=== PATIENT | male | born 1960 | race Caucasian/White ===

== ENCOUNTER 2024-07-28 14:34 | Emergency (ER) | payer MEDICARE ==
[~2024-07-28] VITALS: Ht 170.2 cm; Wt 78.8 kg
[~2024-07-28 14:34] MED LIST: BACLOFEN10 MG PO; CYCLOBENZAPRINE10 MG PO; LIPITOR40 MG PO; MELOXICAM15 MG PO; NEURONTIN300 MG PO; PANTOPRAZOLE SO40 MG PO; VENTOLIN HFA18 GM INH; VERAPAMIL ER180 MG PO
[2024-07-28] MEDS ORDERED: TOPIRAMATE100 MG PO (14:55)
[2024-07-28] MEDS ORDERED: TAMSULOSIN HCL0.4 MG PO (14:55)
[2024-07-28] MEDS ORDERED: LIDOCAINE HCL 4% 1 EACH PATCH TD ONE (15:00)
[2024-07-28] MEDS ORDERED: ondansetron HCL 4 MG/2 ML VIAL IV ONE (15:00)
[2024-07-28] MEDS ORDERED: HYDROmorphone HCL 1 MG/ML SYR IV ONE (15:00)
[2024-07-28] MEDS ORDERED: diazePAM 10 MG/2 ML SYR IV ONE (15:00)
[2024-07-28] MEDS ORDERED: PERCOCET 5-3251 EACH PO (16:33)
[2024-07-28] MEDS ORDERED: LIDODERM1 EACH TOP (16:33)
[2024-07-28] MEDS ORDERED: CYCLOBENZAPRINE10 MG PO (16:33)
[2024-07-28] MEDS ORDERED: PREDNISONE20 MG PO (16:37)
[2024-07-28 16:59] VITALS: BP 165/92
[2024-07-28] MEDS ORDERED: LIDOCAINE PATCH REMOVAL 1 EA TD SCH (21:00)
== END 2024-07-28 17:03 | disposition home or self-care (01) ==
LOC: ED 14:34
DX: M54.50 Low back pain, unspecified (principal); Z88.8 Allergy status to other drugs, medicaments and biological substances; Z79.899 Other long term (current) drug therapy
CPT/HCPCS: 72131; 96374; 96375; 99283-25; A9270; J1171; J2405; J3360